=== PATIENT | male | born 1940 | race American Indian/Alaskan Native ===

== ENCOUNTER 2017-05-07 13:46 | Day surgery (SDC) | payer MEDICARE ==
--- NOTE | 2017-05-07 14:01 | CP.SDSHP ---
Same Day Surgery H & P - History Proposed Procedure: LEFT HEARTH CATH Pre-Op Diagnosis: CAD, POS STRESS ECHO - Previous Medical/Surgical History Cardiac: Hypertension, ASHD/CAD, Angina Pain: 2.Mild Pain - Allergies Allergies: Allergies No Known Allergies Allergy (Verified 05/01/17 10:54) - Physical Exam Neuro: WNL Heart: WNL Lungs: WNL GI: WNL - Date & Time Date: 05/07/17 Time: 14:01 Short Stay Discharge - Short Stay Discharge Admitting Diagnosis/Reason for Visit: C/ POSITIVE STRESS TEST/ CAD Disposition: HOME/ ROUTINE
[2017-05-07] MEDS ORDERED: Midazolam 2 MG/2 ML VIAL ONE ×2 (15:05→15:55)
[2017-05-07] MEDS ORDERED: Lidocaine 2% Inj (20ml) ONE (15:05)
[2017-05-07 16:34] VITALS: BMI 29.1
--- NOTE | 2017-05-08 03:28 | CARDCATH ---
CARDIAC CATHETERIZATION REPORT PROCEDURE DATE: HISTORY: This is a 77-year-old black male with history of hypertension, recently had a chest pain, underwent stress echo showed anterior wall hypokinesis on exercise. The patient underwent a left heart catheterization. Left heart cath was done through right femoral artery. Right femoral artery was cleaned and draped, #6 introducer sheath was inserted and manual pressure was used post cath. Vandana were used for right and left and pigtail for the left angiogram. Left main is a normal vessel gives around a large LAD, which wraps around the apex. In the mid LAD, there is about 40% lesion, smooth atherosclerotic. The diagonal one and two appears normal. Circumflex is a small vessel with a large OM branch, which has no lesions. The right coronary also is a small vessel, but gives PDA and also posterolateral branch and its marginal branches. There is no lesion in the main trunk or its branches. LV gram shows mild hypokinesis generalized mostly to the anterolateral region, the EF is about 45%. ASSESSMENT: 1. Mildly depressed left ventricular systolic function. 2. Single vessel coronary artery disease, left anterior descending about 40% mid. PLAN: Currently continue with medical therapy. Yudy Shook MD
[2017-05-09 15:55] VITALS: RESP 18; O2SAT 99
== END 2017-05-07 22:35 | disposition home or self-care (01) ==
LOC: C.CATHLAB 13:46
PROVIDERS: ATTEND Internal Medicine Cardiovascular Disease
DX: I25.10 Atherosclerotic heart disease of native coronary artery without angina pectoris (principal); I50.20 Unspecified systolic (congestive) heart failure; I11.0 Hypertensive heart disease with heart failure
CPT/HCPCS: 93452; J1644; J2250; J3010